=== PATIENT | female | born 1985 | race Caucasian/White ===

== ENCOUNTER 2018-02-05 20:14 | Emergency (ER) | payer MEDICARE ==
[~2018-02-05] VITALS: Ht 170.2 cm; Wt 72.6 kg
[~2018-02-05 20:14] MED LIST: HORMONES; IBUPROFEN PO
[2018-02-05] MEDS ORDERED: LAMOTRIGINE100 MG PO (20:26)
[2018-02-05] MEDS ORDERED: BUSPIRONE HCL5 MG PO (20:27)
[2018-02-05] MEDS ORDERED: LEXAPRO10 MG PO (20:27)
[2018-02-05] MEDS ORDERED: SODIUM CHLORIDE 0.9% 1000ML 1,000 ML IV STA (20:28)
[2018-02-05] MEDS ORDERED: TRAZODONE HCL50 MG PO (20:28)
[2018-02-05] MEDS ORDERED: PANTOPRAZOLE 40 MG 10ML VIAL IV STA (20:28)
[2018-02-05] MEDS ORDERED: MORPHINE SULFATE 2 MG/ML SYR IV STA (20:28)
[2018-02-05] MEDS ORDERED: ONDANSETRON HCL INJ 2 MG/ML VIAL IV STA (20:28)
[2018-02-05] MEDS ORDERED: LORAZEPAM1 MG PO (20:29)
[2018-02-05 21:05] LABS: BASOPHILS # (AUTO) 0.1 (0.0-0.1); BASOPHILS % 0.6 % (0.0-1.0); EOSINOPHILS # (AUTO) 0.1 (0.0-0.4); EOSINOPHILS % 0.7 % (0.0-6.0); HEMATOCRIT 37.7 % (34.2-44.1); HEMOGLOBIN 13.3 g/dL (12.0-16.0); LYMPHOCYTES # (AUTO) 2.9 (1.0-3.2); LYMPHOCYTES % 24.4 % (18.0-39.1); MEAN CORPUSCULAR HGB CONC 35.3 g/dL (31-35); MEAN CORPUSCULAR VOLUME 90.8 fL (81-99); MONOCYTES # (AUTO) 0.5 (0.2-0.8); MONOCYTES % 4.4 % (4.4-11.3); NEUTROPHILS # (AUTO) 8.3 (2.1-6.9); NEUTROPHILS % 69.4 % (38.7-80.0); PLATELET COUNT 349 x10e3/uL (140-360); RED BLOOD COUNT 4.15 x10e6/uL (3.6-5.1); RED CELL DISTRIBUTION WIDTH 11.9 % (11.7-14.4)
[2018-02-05 21:13] LABS: BILIRUBIN,URINE NEGATIVE (NEGATIVE); CLARITY,URINE HAZY (CLEAR); COLOR,URINE STRAW (YELLOW); KETONES,URINE NEGATIVE (NEGATIVE); LEUKOCYTE ESTERASE ,URINE NEGATIVE (NEGATIVE); NITRITE,URINE NEGATIVE (NEGATIVE); PROTEIN,URINE DIPSTICK NEGATIVE (NEGATIVE); URINE UROBILINOGEN 0.2 mg/dL (0.2 - 1)
[2018-02-05 21:14] LABS: INR 1.07; PROTHROMBIN TIME 13.1 seconds (11.9-14.5)
[2018-02-05 21:15] LABS: PARTIAL THROMBOPLASTIN TIME 26.8 seconds (23.8-35.5)
[2018-02-05 21:23] LABS: EPITHELIAL CELLS,URINE MANY /LPF
[2018-02-05 21:25] LABS: WBC,URINE (MAN) >50 /HPF (0-5)
[2018-02-05 21:26] LABS: ALANINE AMINOTRANSFERASE 15 IU/L (0-55); ALBUMIN 4.3 g/dL (3.5-5.0); ALBUMIN/GLOBULIN RATIO 1.6 (0.8-2.0); ALKALINE PHOSPHATASE 50 IU/L (40-150); AMYLASE 56 U/L (25-125); ANION GAP 16.5 mmol/L (8-16); BLOOD UREA NITROGEN 7 mg/dL (7-26); BUN/CREATININE RATIO 10 (6-25); CALCIUM 9.4 mg/dL (8.4-10.2); CARBON DIOXIDE 22 mmol/L (22-29); CHLORIDE 107 mmol/L (98-107); CREATINE KINASE 68 IU/L (29-168); CREATININE, SERUM 0.73 mg/dL (0.57-1.11); EST GLOMERULAR FILTRATION RATE > 60 ML/MIN (60-); GLUCOSE 102 mg/dL (74-118); LIPASE 15 U/L (8-78); MAGNESIUM 1.8 MG/DL (1.3-2.1); POTASSIUM 3.5 mmol/L (3.5-5.1); SODIUM 142 mmol/L (136-145)
[2018-02-05 21:28] LABS: BACTERIA,URINE MANY /HPF; RBC,URINE 0-5 /HPF (0-5)
[2018-02-05] MEDS ORDERED: CEFTRIAXONE SOD 1 GM VIAL IV STA (21:54)
[2018-02-05] MEDS ORDERED: KETOROLAC TROMETHAMINE 30 MG/ML VIAL IV STA (22:08)
[2018-02-05] MEDS ORDERED: SODIUM CHLORIDE 0.9% 50ML 50 ML ONE (22:11)
[2018-02-05] MEDS ORDERED: IOPAMIDOL 370 MG/ML 200 ML INFUS..BTL INJ ONE (22:11)
--- NOTE | 2018-02-05 22:29 | Diagnostic Imaging Report ---
EXAMINATION: CHEST SINGLE (PORTABLE) INDICATION: Fever, abdominal pain COMPARISON: None FINDINGS: TUBES and LINES: None. LUNGS: Lungs are well inflated. Lungs are clear. There is no evidence of pneumonia or pulmonary edema. PLEURA: No pleural effusion or pneumothorax. HEART AND MEDIASTINUM: The cardiomediastinal silhouette is unremarkable. BONES AND SOFT TISSUES: No acute osseous lesion. Soft tissues are unremarkable. UPPER ABDOMEN: No free air under the diaphragm. IMPRESSION: No acute thoracic abnormality. Signed by: Dr. Remington Fish M.D. on 02/05/2018 10:26 PM
--- NOTE | 2018-02-05 23:26 | Diagnostic Imaging Report ---
EXAM: CT Abdomen and Pelvis WITH contrast INDICATION: Right upper quadrant pain COMPARISON: None. TECHNIQUE: Abdomen and pelvis were scanned utilizing a multidetector helical scanner from the lung base to the pubic symphysis after administration of IV contrast. Coronal and sagittal reformations were obtained. Routine protocol was performed. Scan was performed when during portal venous phase. IV CONTRAST: 100 mL of Isovue-[id number] ORAL CONTRAST: Water RADIATION DOSE: Total DLP: 284.41 mGy*cm Estimated effective dose: (DLP x 0.015 x size factor) mSv using radiation saving techniques COMPLICATIONS: None FINDINGS: LINES and TUBES: None. LOWER THORAX: Unremarkable HEPATOBILIARY: No focal hepatic lesions. No biliary ductal dilation. GALLBLADDER: No radio-opaque stones or sludge. No wall thickening. SPLEEN: No splenomegaly. PANCREAS: No focal masses or ductal dilatation. ADRENALS: No adrenal nodules KIDNEYS/URETERS: Kidneys enhance symmetrically. No hydronephrosis. No cystic or solid mass lesions. No stones. GI TRACT: No abnormal distention, wall thickening, or evidence of bowel obstruction. Appendix is normal. PELVIC ORGANS/BLADDER: Unremarkable. LYMPH NODES: No lymphadenopathy. VESSELS: Unremarkable. PERITONEUM / RETROPERITONEUM: No free air or fluid. BONES: Unremarkable. SOFT TISSUES: Unremarkable. IMPRESSION: 1. No acute intra-abdominal or pelvic abnormality present. Signed by: Dr. Remington Fish M.D. on 02/05/2018 11:22 PM
[2018-02-05 23:50] VITALS: BP 127/84
== END 2018-02-06 00:06 | disposition home or self-care (01) ==
LOC: ER 20:14
DX: R10.11 Right upper quadrant pain (principal); R10.31 Right lower quadrant pain; R11.0 Nausea; R19.7 Diarrhea, unspecified; N10 Acute pyelonephritis; F31.9 Bipolar disorder, unspecified; F17.210 Nicotine dependence, cigarettes, uncomplicated
CPT/HCPCS: 36415; 71045; 74177; 80053; 81001; 82150; 82550; 82553; 83690; 83735; 84484; 85025; 85610; 85730; 87086; 87186; 99284; J0696; J1885; J2270; J2405; J7030; Q9967

== ENCOUNTER 2019-04-28 16:36 | Emergency (ER) | payer OTHER ==
[~2019-04-28] VITALS: Ht 170.2 cm; Wt 72.6 kg
[~2019-04-28 16:36] MED LIST changes: +BUSPIRONE HCL5 MG PO; +CIPRODEX OTIC7.5 ML OT; +LAMOTRIGINE100 MG PO; +LEVAQUIN500 MG PO; +LEXAPRO10 MG PO; +LORAZEPAM1 MG PO; +TRAZODONE HCL50 MG PO
--- OUTSIDE RECORDS SUMMARY | 2019-04-28 16:39 | XMS REPORT ---
Author Author Admin, [place] Organization Unknown Address Unknown Phone Unavailable PROBLEMS Condition Status Date Provider Notes DEPRESSIVE DISORDER, MAJOR, RECURRENT EPISODE, MILD active Zach Alfredo ADHD, PREDOMINANTLY INATTENTIVE PRESENTATION, MILD active Zach Alfredo GENERALIZED ANXIETY DISORDER active Zach Alfredo ENCOUNTERS Date Type Provider Location Encounter Diagnosis - Ambulatory Encounter Zach Tomas [facility] UNK - Ambulatory Encounter Mary Waters [facility] UNK - Ambulatory Encounter Zach Alfredo Zach Temple [facility] UNK - Ambulatory Encounter Zach Alfredo Zach Bejarano [facility] UNK - Ambulatory Encounter Zach Alfredo Zach Alfredo Swtahi Cole [facility] UNK - Ambulatory Encounter Zach Alfredo aZch Temple [facility] UNK - Ambulatory Encounter Zach Alfredo Zach Alfredo Sarah Pearce [facility] UNK - Ambulatory Encounter Zach Alfredo Zach Fuentes [facility] UNK - Ambulatory Encounter Zach Alfredo Zach Alfredo Leah Temple [facility] UNK - Ambulatory Encounter Zach Alfredo Zach Alfredo [facility] UNK - Ambulatory Encounter Zach Alfredo Zach Alfredo Leah Temple [facility] UNK - Ambulatory Encounter Zach Alfredomartín Fuentes [facility] UNK - Ambulatory Encounter Zach Alfredo Serrano Alfredo [facility] UNK - Ambulatory Encounter Mona [place] [facility] UNK - Ambulatory Encounter Zach Alfredo Garlandkins Mona Pola Leah Temple [facility] UNK - Ambulatory Encounter Zach Alfredomartín Fuentes Leah Temple [facility] UNK - Ambulatory Encounter Zach Alfredomartín Fuentes Rowan Vazquez [facility] Contact Center UNK - Ambulatory Encounter Leah Temple [facility] UNK - Ambulatory Encounter Zachluis Serrano Alfredo [facility] UNK - Ambulatory Encounter Zachluis Fuentes Beverley Singh [facility] UNK - Ambulatory Encounter Zach Alfredomartín Fuentes Leah Temple [facility] UNK - Ambulatory Encounter Zachluis Serrano Alfredo [facility] UNK - Ambulatory Encounter Gretta Waters [facility] REPRESENTATIVE UNK - Ambulatory Encounter Grteta Waters [facility] REPRESENTATIVE UNK - Ambulatory Encounter Zach Alfredomartín Serrano Alfredo Leah [facility] UNK - Ambulatory Encounter Leah Ferrererrat Singh [facility] Contact Center UNK - Ambulatory Encounter Zach Alfredomartín Fuentes [facility] UNK - Ambulatory Encounter Zach Fuentes Leah Temple [facility] UNK - Ambulatory Encounter Leah Pink [facility] UNK - Ambulatory Encounter Zach Fuentes Mary Jt Singh [facility] UNK - Ambulatory Encounter Zach Fuentes Leah Temple [facility] DEPRESSIVE DISORDER, MAJOR, RECURRENT EPISODE, MILD - Ambulatory Encounter Zach Fuentes Leah Bejarano [facility] UNK - Ambulatory Encounter Zach Fuentes Leah Temple [facility] GENERALIZED ANXIETY DISORDERADHD, PREDOMINANTLY INATTENTIVE PRESENTATION, MILD - Ambulatory Encounter Leah Temple [facility] UNK - Ambulatory Encounter Gretta Waters [facility] MEDICAL CUSTOMER SERVICE REPRESENTATIVE UNK VITAL SIGNS No Information Available Allergies No Known Allergy Information REASON FOR REFERRAL No Information Available RESULTS No Information Available HISTORY OF IMMUNIZATIONS No Information Available HISTORY OF MEDICATION USE Medication Instructions Dates Provider Comments LAMICTAL 100 MG ORAL TABLET Take one tablet By Mouth daily Zach Fuentes LEXAPRO 20 MG ORAL TABLET Take one half tablet daily for one week then take one tablet daily Zach Fuentes LAMICTAL 100 MG ORAL TABLET Take one tablet By Mouth daily - Zach Fuentes KLONOPIN 1 MG ORAL TABLET Take one tablet By Mouth Twice a Day as needed for anxiety Zach Fuentes ADDERALL 30 MG ORAL TABLET Take one tablet By Mouth Twice a Day Zach Fuentes CTRL# [id number] efd 04/30 TRAZODONE HCL 100 MG ORAL TABLET Take one tablet By Mouth at bedtime Zach Alfredo LEXAPRO 20 MG ORAL TABLET Take one tablet By Mouth daily - Zach Alfredo VYVANSE 40 MG ORAL CAPSULE Take one capsule By Mouth daily - Zach Alfredo CTRL# [id number], CTRL# [id number] efd 06/15, 07/15 HYDROXYZINE HCL 50 MG ORAL TABLET Take two tablets By Mouth Twice a Day as needed for anxiety Zach Alfredo SOCIAL HISTORY Date Observation Value Provider drug use, illicit Previously Zach Fuentes " alcohol use Currently Zach Fuentes " smoking status former smoker Zach Fuentes " social history E&M Single. Moved to [place] at age 2 weeks; never ; has 3 children ages 15, 14 and 10 as of 01/2018 City: [place]. State: [place]. Lives with her 3 children, friend, friend's and their 6 yo dtr (As of 01/2018) Not employed. 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 Sexual orientation: Heterosexual. Gender identity: Female. Zach Fuentes " social history reviewed E&M reviewed today Zach Fuentes " Exercise Program Referral T Zach Fuentes " Weight Management Counseling Provided T Zach Fuentes " Nutrition intervention T Zach Alfredo drug use, illicit Previously Zach Fuentes " alcohol use Currently Zach Fuentes " smoking status former smoker Zach Fuentes " social history E&M Single. Moved to [place] at age 2 weeks; never ; has 3 children ages 15, 14 and 10 as of 01/2018 City: [place]. State: [place]. Lives with her 3 children, friend, friend's and their 6 yo dtr (As of 01/2018) Not employed. 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 Sexual orientation: Heterosexual. Gender identity: Female. Zach Alfredo " social history reviewed E&M reviewed today Zach Alfredo " Exercise Program Referral T Zach Fuentes " Weight Management Counseling Provided T Zach Garlandkins " Nutrition intervention T Zachluis Garlandkins drug use, illicit Previously Zach Alfredo " alcohol use Currently Zach Alfredo " smoking status former smoker Zach Alfredo " social history E&M Single. Moved to [place] at age 2 weeks; never ; has 3 children ages 15, 14 and 10 as of 01/2018 City: [place]. State: [place]. Lives with her 3 children, friend, friend's and their 6 yo dtr (As of 01/2018) Not employed. 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 Sexual orientation: Heterosexual. Gender identity: Female. Zach Alfredo " social history reviewed E&M reviewed today Zach Alfredo " Exercise Program Referral T Zach Alfredo " Weight Management Counseling Provided T Zach Alfredo " Nutrition intervention T Zach Garlandkins drug use, illicit Previously Zach Alfredo " alcohol use Currently Zach Alfredo " smoking status former smoker Zach Alfredo " social history E&M Single. Moved to [place] at age 2 weeks; never ; has 3 children ages 15, 14 and 10 as of 01/2018 City: [place]. State: [place]. Lives with her 3 children, friend, friend's and their 6 yo dtr (As of 01/2018) Not employed. 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 Sexual orientation: Heterosexual. Gender identity: Female. Zach Alfredo " social history reviewed E&M reviewed today Zach Alfredo " Exercise Program Referral T Zach Alfredo " Weight Management Counseling Provided T Zach Alfredo " Nutrition intervention T Zach Alfredo drug use, illicit Previously Zach Alfredo " alcohol use Currently Zach Alfredo " smoking status former smoker Zach Alfredo " social history E&M Single. Moved to [place] at age 2 weeks; never ; has 3 children ages 15, 14 and 10 as of 01/2018 City: [place]. State: [place]. Lives with her 3 children, friend, friend's and their 6 yo dtr (As of 01/2018) Not employed. 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 Sexual orientation: Heterosexual. Gender identity: Female. Zach Alfredo " social history reviewed E&M reviewed today Zach Alfredo " Exercise Program Referral T Zach Alfredo " Weight Management Counseling Provided T Zach Alfredo " Nutrition intervention T Zach Alfredo smoking, advice to quit Yes Zach Alfredo " drug use, illicit Previously Zach Alfredo " smoking status former smoker Zach Alfredo " social history E&M Single. Moved to [place] at age 2 weeks; never ; has 3 children ages 15, 14 and 10 as of 01/2018 City: [place]. State: [place]. Lives with her 3 children, friend, friend's and their 6 yo dtr (As of 01/2018) Not employed. 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 Sexual orientation: Heterosexual. Gender identity: Female. Zach Alfredo " social history reviewed E&M reviewed today Zach Alfredo " Exercise Program Referral T Zach Alfredo " Weight Management Counseling Provided T Zach Alfredo " Nutrition intervention T Zach Alfredo smoking, advice to quit Yes Zach Alfredo " drug use, illicit Previously Zach Alfredo " alcohol use Currently Zach Alfredo " smoking status current every day smoker Zach Alfredo " social history E&M Single. Moved to [place] at age 2 weeks; never ; has 3 children ages 15, 14 and 10 as of 01/2018 City: [place]. State: [place]. Lives with her 3 children, friend, friend's and their 6 yo dtr (As of 01/2018) Not employed. 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 Sexual orientation: Heterosexual. Gender identity: Female. Zach Alfredo " social history reviewed E&M reviewed today Zach Alfredo " Exercise Program Referral T Zach Alfredo " Weight Management Counseling Provided T Zach Alfredo " Nutrition intervention T Zach Alfredo social history E&M Single. Moved to [place] at age 2 weeks; never ; has 3 children ages 15, 14 and 10 as of 01/2018 City: [place]. State: [place]. Lives with her 3 children, friend, friend's and their 6 yo dtr (As of 01/2018) Not employed. 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 Sexual orientation: Heterosexual. Gender identity: Female. Zach Alfredo " social history reviewed E&M reviewed today Zach Alfredo " smoking, advice to quit Yes Zach Alfredo " drug use, illicit Previously Zach Alfredo " alcohol use Currently Zach Alfredo " smoking status current every day smoker Zach Alfredo " Exercise Program Referral T Zach Alfredo " Weight Management Counseling Provided T Zach Alfredo " Nutrition intervention T Zach Alfredo smoking, advice to quit Yes Zach Alfredo " drug use, illicit Previously Zach Alfredo " alcohol use Currently Zach Alfredo " smoking status current every day smoker Zach Alfredo " social history E&M Single. Moved to [place] at age 2 weeks; never ; has 3 children ages 15, 14 and 10 as of 01/2018 City: [place]. State: [place]. Lives with her 3 children, friend, friend's and their 6 yo dtr (As of 01/2018) Not employed. 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 Sexual orientation: Heterosexual. Gender identity: Female. Zach Alfredo " social history reviewed E&M reviewed today Zach Alfredo " Exercise Program Referral T Zach Alfredo " Weight Management Counseling Provided T Zach Alfredo " Nutrition intervention T Zach Alfredo " sexual orientation Heterosexual Zach Alfredo " sex at Female Zach Alfredo " drug use, illicit Previously Zach Alfredo " alcohol use Currently Zach Alfredo " smoking, advice to quit Yes Zach Alfredo " smoking status current every day smoker Zach Alfredo " social history reviewed E&M reviewed today Zach Alfredo " social history E&M Single. Moved to [place] at age 2 weeks; never ; has 3 children ages 15, 14 and 10 as of 01/2018 City: [place]. State: [place]. Lives with her 3 children, friend, friend's and their 6 yo dtr (As of 01/2018) Not employed. 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 Sexual orientation: Heterosexual. Gender identity: Female. Zachluis Fuentes " home/family situation, assessment Lives with her 3 children, friend, friend's and their 6 yo dtr (As of 01/2018) Zach Alfredo " family support Moved to [place] at age 2 weeks; never ; has 3 children ages 15, 14 and 10 as of 01/2018 Zach Fuentes " Exercise Program Referral T Zach Fuentes " Weight Management Counseling Provided T Zach Fuentes" Nutrition intervention T Zach Fuentes FUNCTIONAL STATUS No Information Available MENTAL STATUS Date Observation Value Provider mood (mental status exam) depressed Zach Fuentes " mental status assessment, judgment good Zach Fuentes " insight (mental status exam) good Zach Fuentes " Mental Status Exam: intelligence adequate fund of information, intact memory processes, oriented to person, oriented to place, oriented to time, oriented to situation, oriented to reality Zach Fuentes " hallucinations none Zach Fuentes " thought content (mental status exam) (E&M) lucid Zach Fuentes " mental status assessment, process able to abstract, goal-directed, logical Zach Fuentes " mental status assessment, sensorium alert, attentive, clear Zach Fuentes " affect (mental status exam) congruent, normal intensity, normal range Zach Fuentes " mental status assessment, speech activity normal flow, normal pace, normal pressure, normal rate, normal tone, normal volume, spontaneous Zach Fuentes " mental status assessment, motor activity normal gait, normal posture Zach Fuentes " behavior (mental status exam) appropriate, candid, cooperative, good eye contact, polite, responsive Zach Fuentes " mental appearance (mental status exam) adequate hygiene, appropriate dress, looks like stated age, neat, makeup appropriate Zach Fuentes mood (mental status exam) pleasant Zach Fuentes " mental status assessment, judgment good Zach Fuentes " insight (mental status exam) good Zach Fuentes " Mental Status Exam: intelligence adequate fund of information, intact memory processes, oriented to person, oriented to place, oriented to time, oriented to situation, oriented to reality Zach Fuentes " hallucinations none Zach Fuentes " thought content (mental status exam) (E&M) lucid Zach Fuentes " mental status assessment, process able to abstract, goal-directed, logical Zach Alfredo " mental status assessment, sensorium alert, attentive, clear Zach Alfredo " affect (mental status exam) congruent, euthymic, normal intensity, normal range Zach Alfredo " mental status assessment, speech activity normal flow, normal pace, normal pressure, normal rate, normal tone, normal volume, spontaneous Zach Alfredo " mental status assessment, motor activity normal gait, normal posture Zach Alfredo " behavior (mental status exam) appropriate, candid, cooperative, good eye contact, polite, responsive Zach Alfredo " mental appearance (mental status exam) adequate hygiene, appropriate dress, looks like stated age, neat, makeup appropriate Zach Alfredo mental status assessment, judgment good Zach Alfredo " insight (mental status exam) good Zach Alfredo " Mental Status Exam: intelligence adequate fund of information, intact memory processes, oriented to person, oriented to place, oriented to time, oriented to situation, oriented to reality Zach Alfredo " hallucinations none Zach Alfredo " thought content (mental status exam) (E&M) lucid Zach Alfredo " mental status assessment, process able to abstract, goal-directed, logical Zach Alfredo " mental status assessment, sensorium alert, attentive, clear Zach Alfredo " affect (mental status exam) congruent, normal intensity, normal range Zach Alfredo " mood (mental status exam) depressed Zach Alfredo " mental status assessment, speech activity normal flow, normal pace, normal pressure, normal rate, normal tone, normal volume, spontaneous Zach Alfredo " mental status assessment, motor activity normal gait, normal posture, fidgety Zach Alfredo " behavior (mental status exam) appropriate, candid, cooperative, good eye contact, polite, responsive, tearful Zach Alfredo " mental appearance (mental status exam) adequate hygiene, appropriate dress, looks like stated age, neat Zach Alfredo mental status assessment, judgment good Zach Alfredo " insight (mental status exam) good Zach Alfredo " Mental Status Exam: intelligence adequate fund of information, intact memory processes, oriented to person, oriented to place, oriented to time, oriented to situation, oriented to reality Zach Alfredo " hallucinations none Zach Alfredo " thought content (mental status exam) (E&M) lucid Zach Alfredo " mental status assessment, process able to abstract, goal-directed, logical Zach Alfredo " mental status assessment, sensorium alert, attentive, clear Zach Alfredo " affect (mental status exam) congruent, normal intensity, normal range Zach Alfredo " mood (mental status exam) pleasant Zach Alfredo " mental status assessment, speech activity normal flow, normal pace, normal pressure, normal rate, normal tone, normal volume, spontaneous Zach Alfredo " mental status assessment, motor activity normal gait, normal posture Zach Alfredo " behavior (mental status exam) appropriate, candid, cooperative, good eye contact, polite, responsive, tearful Zach Alfredo " mental appearance (mental status exam) adequate hygiene, appropriate dress, looks like stated age, neat Zach Garlandkins mental status assessment, judgment good Zach Alfredo " insight (mental status exam) good Zach Alfredo " Mental Status Exam: intelligence adequate fund of information, intact memory processes, oriented to person, oriented to place, oriented to time, oriented to situation, oriented to reality Zach Alfredo " hallucinations none Zach Alfredo " thought content (mental status exam) (E&M) lucid Zach Alfredo " mental status assessment, process able to abstract, goal-directed, logical Zach Alfredo " mental status assessment, sensorium alert, attentive, clear Zach Alfredo " affect (mental status exam) congruent, euthymic, normal intensity, normal range Zach Alfredo " mood (mental status exam) pleasant Zach Alfredo " mental status assessment, speech activity normal flow, normal pace, normal pressure, normal rate, normal tone, normal volume, spontaneous Zach Alfredo " mental status assessment, motor activity normal gait, normal posture Zach Alfredo " behavior (mental status exam) appropriate, candid, cooperative, good eye contact, polite, responsive Zach Alfredo " mental appearance (mental status exam) adequate hygiene, appropriate dress, looks like stated age, neat, makeup appropriate Zach Fuentes mental status assessment, judgment good Zach Alfredo " insight (mental status exam) good Zach Alfredo " Mental Status Exam: intelligence adequate fund of information, intact memory processes, oriented to person, oriented to place, oriented to time, oriented to situation, oriented to reality Zach Alfredo " hallucinations none Zach Alfredo " thought content (mental status exam) (E&M) lucid Zach Alfredo " mental status assessment, process able to abstract, goal-directed, logical Zach Alfredo " mental status assessment, sensorium alert, attentive, clear Zach Alfredo " affect (mental status exam) congruent, euthymic, normal intensity, normal range Zach Alfredo " mood (mental status exam) pleasant Zach Alfredo " mental status assessment, speech activity normal flow, normal pace, normal pressure, normal rate, normal tone, normal volume, spontaneous Zach Alfredo " mental status assessment, motor activity normal gait, normal posture Zach Alfredo " behavior (mental status exam) appropriate, candid, cooperative, good eye contact, polite, responsive Zach Alfredo " mental appearance (mental status exam) adequate hygiene, appropriate dress, looks like stated age, neat, makeup appropriate Zach Garlandkins mental status assessment, judgment good Zach Alfredo " insight (mental status exam) good Zach Alfredo " Mental Status Exam: intelligence adequate fund of information, intact memory processes, oriented to person, oriented to place, oriented to time, oriented to situation, oriented to reality Zach Alfredo " hallucinations none Zach Alfredo " thought content (mental status exam) (E&M) lucid Zach Alfredo " mental status assessment, process able to abstract, goal-directed, logical Zach Alfredo " mental status assessment, sensorium alert, attentive, clear Zach Alfredo " affect (mental status exam) euthymic, normal intensity, normal range Zach Alfredo " mood (mental status exam) pleasant Zach Alfredo " mental status assessment, speech activity normal flow, normal pace, normal pressure, normal rate, normal tone, normal volume, spontaneous Zach Alfredo " mental status assessment, motor activity normal gait, normal posture Zach Alfredo " behavior (mental status exam) appropriate, candid, cooperative, good eye contact, polite, responsive Zach Alfredo " mental appearance (mental status exam) adequate hygiene, appropriate dress, looks like stated age, neat Zach Fuentes mental status assessment, judgment good Zach Alfredo " insight (mental status exam) good Zach Alfredo " Mental Status Exam: intelligence adequate fund of information, intact memory processes, oriented to person, oriented to place, oriented to time, oriented to situation, oriented to reality Zach Alfredo " hallucinations none Zach Alfredo " thought content (mental status exam) (E&M) lucid Zach Alfredo " mental status assessment, process able to abstract, goal-directed, logical Zach Alfredo " mental status assessment, sensorium alert, attentive, clear Zach Alfredo " affect (mental status exam) congruent, euthymic, normal intensity, normal range Zach Alfredo " mood (mental status exam) pleasant Zach Alfredo " mental status assessment, speech activity normal flow, normal pace, normal pressure, normal rate, normal tone, normal volume, spontaneous Zach Alfredo " mental status assessment, motor activity normal gait, normal posture Zach Alfredo " behavior (mental status exam) appropriate, candid, cooperative, good eye contact, polite, responsive Zach Alfredo " mental appearance (mental status exam) adequate hygiene, appropriate dress, looks like stated age, neat, makeup appropriate Zach Garlandkins mood (mental status exam) pleasant Zach Garlandkins " mental status assessment, judgment good Zach Alfredo " insight (mental status exam) good Zach Alfredo " Mental Status Exam: intelligence adequate fund of information, intact memory processes, oriented to person, oriented to place, oriented to time, oriented to situation, oriented to reality Zach Alfredo " hallucinations none Zach Alfredo " thought content (mental status exam) (E&M) lucid Zach Alfredo " mental status assessment, process able to abstract, goal-directed, logical Zach Alfredo " mental status assessment, sensorium alert, attentive, clear Zach Alfredo " affect (mental status exam) congruent, euthymic, normal intensity, normal range Zach Alfredo " mental status assessment, speech activity normal flow, normal pace, normal pressure, normal rate, normal tone, normal volume, spontaneous Zach Alfredo " mental status assessment, motor activity normal gait, normal posture Zach Alfredo " behavior (mental status exam) appropriate, candid, cooperative, good eye contact, polite, responsive Zach Alfredo " mental appearance (mental status exam) adequate hygiene, appropriate dress, looks like stated age, neat Zach Alfredo anxiety worry a lot, sleep disturbance, irritability Zach Alfredo " mental status assessment, judgment good Zach Alfredo " insight (mental status exam) good Zach Alfredo " Mental Status Exam: intelligence adequate fund of information, intact memory processes, oriented to person, oriented to place, oriented to time, oriented to situation, oriented to reality Zach Garlandkins " hallucinations none Zach Alfredo " thought content (mental status exam) (E&M) lucid Zach Fuentes " mental status assessment, process able to abstract, goal-directed, logical Zach Alfredo " mental status assessment, sensorium alert, attentive, clear Zach Alfredo " affect (mental status exam) euthymic, normal intensity, normal range Zach Alfredo " mental status assessment, speech activity normal flow, normal pace, normal pressure, normal rate, normal tone, normal volume, spontaneous Zach Alfredo " mental status assessment, motor activity normal gait, normal posture Zach Alfredo " behavior (mental status exam) appropriate, candid, cooperative, good eye contact, polite, responsive Zach Garlandkins " mental appearance (mental status exam) adequate hygiene, appropriate dress, looks like stated age, neat Zach Garlandkins MEDICAL EQUIPMENT No Information Available FAMILY HISTORY No Information Available INSURANCE PROVIDERS No Information Available ADVANCE DIRECTIVES No Information Available TREATMENT PLAN Date Name Est Patient Detailed - 12217 Est Patient Exp Problem - 33627 Est Patient Detailed - 92262 Est Patient Detailed - 67786 Est Patient Detailed - 75841 Est Patient Detailed - 86280 Est Patient Detailed - 55839 Est Patient Detailed - 65082 Est Patient Exp Problem - 99393 Diagnostic evaluation with medical - 60599 HISTORY OF PROCEDURES Procedure Date Procedure Name Provider Procedure Notes Status Diagnostic evaluation with medical - 94586 Zach Fuentes completed GOALS No Information Available HEALTH CONCERNS No Information Available
[2019-04-28 17:28] LABS: BASOPHILS # (AUTO) 0.1 (0.0-0.1); BASOPHILS % 0.8 % (0.0-1.0); EOSINOPHILS # (AUTO) 0.1 (0.0-0.4); EOSINOPHILS % 1.2 % (0.0-6.0); HEMATOCRIT 36.4 % (34.2-44.1); HEMOGLOBIN 12.6 g/dL (12.0-16.0); LYMPHOCYTES # (AUTO) 4.1 (1.0-3.2); LYMPHOCYTES % 44.8 % (18.0-39.1); MEAN CORPUSCULAR HEMOGLOBIN 30.8 pg (28-32); MEAN CORPUSCULAR HGB CONC 34.6 g/dL (31-35); MONOCYTES # (AUTO) 0.6 (0.2-0.8); MONOCYTES % 6.4 % (4.4-11.3); NEUTROPHILS # (AUTO) 4.2 (2.1-6.9); NEUTROPHILS % 46.4 % (38.7-80.0); PLATELET COUNT 402 x10e3/uL (140-360); RED BLOOD COUNT 4.09 x10e6/uL (3.6-5.1); RED CELL DISTRIBUTION WIDTH 13.2 % (11.7-14.4)
[2019-04-28 17:29] LABS: BILIRUBIN,URINE NEGATIVE (NEGATIVE); CLARITY,URINE SL CLOUDY (CLEAR); COLOR,URINE YELLOW (YELLOW); KETONES,URINE TRACE (NEGATIVE); LEUKOCYTE ESTERASE ,URINE SMALL (NEGATIVE); NITRITE,URINE NEGATIVE (NEGATIVE); PROTEIN,URINE DIPSTICK NEGATIVE (NEGATIVE); URINE UROBILINOGEN 0.2 mg/dL (0.2 - 1)
[2019-04-28 17:46] LABS: BACTERIA,URINE MODERATE /HPF; EPITHELIAL CELLS,URINE MODERATE /LPF
[2019-04-28 17:48] LABS: PHENCYCLIDINE SCREEN,URINE NEGATIVE (NEGATIVE)
[2019-04-28 17:50] LABS: AMPHETAMINES SCREEN,URINE POSITIVE (NEGATIVE)
[2019-04-28 17:51] LABS: BENZODIAZEPINES SCREEN,URINE NEGATIVE (NEGATIVE)
[2019-04-28 17:53] LABS: ANION GAP 17.3 mmol/L (8-16); BLOOD UREA NITROGEN 10 mg/dL (7-26); BUN/CREATININE RATIO 12 (6-25); CARBON DIOXIDE 19 mmol/L (22-29); CHLORIDE 109 mmol/L (98-107); CREATININE, SERUM 0.81 mg/dL (0.57-1.11); EST GLOMERULAR FILTRATION RATE > 60 ML/MIN (60-); GLUCOSE 86 mg/dL (74-118); POTASSIUM 3.3 mmol/L (3.5-5.1); SODIUM 142 mmol/L (136-145)
[2019-04-28] MEDS ORDERED: BACTRIM DS TAB1 EACH PO (18:03)
[2019-04-28 18:15] VITALS: BP 121/85
== END 2019-04-28 18:17 | disposition home or self-care (01) ==
LOC: ER 16:36
DX: R30.0 Dysuria (principal); N30.91 Cystitis, unspecified with hematuria; F41.9 Anxiety disorder, unspecified; F17.210 Nicotine dependence, cigarettes, uncomplicated
CPT/HCPCS: 36415; 80048; 80307; 81001; 85025; 99283